=== PATIENT | male | born 1995 | race American Indian/Alaskan Native ===

== ENCOUNTER 2019-11-06 13:14 | Emergency (ER) | payer SELFPAY ==
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
== END 2019-11-06 13:20 | disposition left against medical advice (07) ==
LOC: ED 13:14
DX: S60.511A Abrasion of right hand, initial encounter (principal); M25.521 Pain in right elbow; Z53.21 Procedure and treatment not carried out due to patient leaving prior to being seen by health care provider; V49.9XXA Car occupant (driver) (passenger) injured in unspecified traffic accident, initial encounter; Y93.89 Activity, other specified; Y92.488 Other paved roadways as the place of occurrence of the external cause; Y99.8 Other external cause status